=== PATIENT | male | born 1980 | race Caucasian/White ===

== ENCOUNTER 2016-08-25 19:26 | Emergency (ER) | payer OTHER ==
[~2016-08-25] VITALS: Ht 185.4 cm; Wt 119.7 kg
[2016-08-25 19:30] VITALS: TEMP 37.1
[2016-08-25] MEDS ORDERED: SODIUM CHLORIDE 0.9% 1000ML 1,000 ML IV STA (20:20)
[2016-08-25] MEDS ORDERED: LORAZEPAM 1 MG TAB SL STA (20:22)
[2016-08-25 20:24] VITALS: Ht 185.4 cm; Wt 119.7 kg
[2016-08-25] MEDS ORDERED: IBUP-1050 PO (20:59)
[2016-08-25 21:00] LABS: URINE APPEARANCE CLEAR (CLEAR); URINE BILIRUBIN NEG (NEG); URINE COLOR YELLOW; URINE NITRITE NEG (NEG); URINE PH 5.5 (4.5-7.5); URINE SPECIFIC GRAVITY 1.009 (1.000-1.030); UROBILINOGEN NEG (NEG)
[2016-08-25 21:03] LABS: MANUAL MICROSCOPIC REQUIRED? NO; REVIEW REQ? NO
[2016-08-25 21:31] LABS: BASO % 0.1 %; BASO ABS # 0.01 K/uL (0-0.2); COMPLETE YES; EOS % 1.7 %; IG% 0.3 %; LYMPH % 27.9 %; LYMPH ABS # 1.96 K/uL (1.2-3.4); MEAN CELL VOLUME 82.2 fL (80-100); MEAN CORPUSCULAR HEMOGLOBIN 29.8 pg (25-34); MEAN CORPUSCULAR HGB CONC 36.3 g/dl (32-36); MEAN PLATELET VOLUME 9.5 fL (7.4-10.4); MONO % 10.2 %; NEUT % 59.8 %; PLATELET COUNT 215 K/uL (130-400); RED BLOOD COUNT 5.23 M/uL (4.7-6.1); WHITE BLOOD COUNT 7.03 K/uL (4.8-10.8)
[2016-08-25 21:42] LABS: PROTHROMBIN TIME (PATIENT) 10.7 SECONDS (9.0-12.0)
--- NOTE | 2016-08-25 21:54 | DIAGNOSTIC IMAGING REPORT ---
CT HEAD WITHOUT CONTRAST (CT) CLINICAL HISTORY: Syncope. Possible seizure. HEAD TRAUMA COMPARISON STUDY: No previous studies for comparison. TECHNIQUE: Axial CT of the brain is performed from the vertex to the skull base. IV contrast was not administered for this examination. CT DOSE: FINDINGS: No intra or extra-axial mass lesions are visualized. There is no CT evidence of acute cortical infarction. There is no evidence of midline shift. There is no acute hemorrhage. No calvarial fractures are visualized. There is no evidence of pathologic ventricular dilatation. There is no evidence of acute sinusitis IMPRESSION: Normal noncontrast head CT. Electronically signed by: Matt Latif M.D. 08/25/2016 9:52 PM Dictated Date/Time: 08/25/2016 9:51 PM
--- NOTE | 2016-08-25 21:57 | DIAGNOSTIC IMAGING REPORT ---
CT OF THE CERVICAL SPINE CLINICAL HISTORY: Neck pain status post trauma COMPARISON STUDY: No previous studies for comparison. CT DOSE: 1008.55 mGy.cm TECHNIQUE: CT scan of the cervical spine was performed from the skull base to the thoracic inlet. Images are reviewed in the axial, sagittal, and coronal planes. IV contrast was not administered for this examination. FINDINGS: The visualized portions of the lung apices reveal no evidence of pneumothorax. There is a left maxilla sinus retention cyst. The prevertebral soft tissues are normal. No fractures or subluxations are visualized. There are degenerative changes most pronounced at the C5-6 level. IMPRESSION: No evidence of acute fracture or traumatic subluxation. Electronically signed by: Matt Latif M.D. 08/25/2016 9:54 PM Dictated Date/Time: 08/25/2016 9:52 PM
[2016-08-25 21:58] LABS: ALT/SGPT 41 U/L (12-78); BLOOD UREA NITROGEN 17 mg/dl (7-18); BUN/CREATININE RATIO 16.7 (10-20); CALCIUM 8.1 mg/dl (8.5-10.1); CARBON DIOXIDE 24 mmol/L (21-32); CHLORIDE 107 mmol/L (98-107); GLUCOSE 88 mg/dl (70-99); POTASSIUM 3.4 mmol/L (3.5-5.1); SODIUM 141 mmol/L (136-145)
[2016-08-25 22:07] LABS: ALKALINE PHOSPHATASE 51 U/L (45-117); AST/SGOT 20 U/L (15-37)
[2016-08-26 00:07] VITALS: BP 116/69; PULSE 73; O2SAT 97
--- NOTE | 2016-08-26 04:49 | EMERGENCY ROOM VISIT NOTE ---
History Report prepared by Cherry: Trang Dumont Under the Supervision of: Dr. Damion Malik M.D. First contact with patient: 20:08 Chief Complaint: SEIZURE Stated Complaint: SEIZURE, FELL AND HIT HEAD Nursing Triage Summary: pt states he had a seizure last night, no hx of seizures. states woke up felt nauseated went to bathroom was dizzy a little, sat on toilet, next thing he new he fell forwards and hit his head on floor, no hx of seizures History of Present Illness The patient is a 36 year old male who presents to the Emergency Room via to be evaluated for an episode of seizure that occurred one night ago. Last night, the patient woke up at 2330, feeling as if he needed to vomit. He had gone to sleep one hour before. He states that he never vomits, so he thought that this was unusual. On his way to the bathroom, the patient started to feel dizzy, but he did not find this too unusual as he states he has occasional dizzy spells. The patient walked over to the toilet and had nausea, tunnel- vision, dizziness and felt sweaty. He then fell to the ground. He states that he hit his forehead on the floor. He states that his head kept hitting the floor , but that he had no control over this. He could not move his arms or call for help. He believes that he hit his head about eight times on the ground. The patient then came to and stood back up. He realized that he had urinated on the floor. After the episode, the patient developed back and neck pain. He has a slight headache. The patient states that he ached throughout the day today and that the aching has increased in severity throughout the day. The patient states that he has a history of low blood sugar; his blood sugar has previously dropped to 42. Per , the patient has been having rapid alternating eye movements that he is not aware of. The patient last ate about 8 hours ago. Pt denies fevers, chills, diaphoresis, visual changes, chest pain, breathing difficulties, vomiting, abdominal pain, melena, hematochezia, urinary symptoms, numbness, weakness, lymphadenopathy, rash, or other complaints. Source of History: patient, family Onset: one night ago Position: other (global) Quality: other (syncope) Timing: other (episode) Associated Symptoms: + back pain, + headache, + nausea, + neck pain Note: He started to feel dizzy. He states that he hit his forehead on the floor. He states that his head kept hitting the floor, but that he had no control over this. He could not move his arms or call for help. He believes that he hit his head about eight times on the ground. He realized that he had urinated on the floor. Per , the patient has been having rapid alternating eye movements. Review of Systems See HPI for pertinent positives and negatives. A total of ten systems were reviewed and were otherwise negative. Past Medical & Surgical Medical Problems: (1) Hypoglycemia (2) Knee injury Family History Diabetes mellitus Hypertension Social History Smoking Status: Never Smoker Marital Status: Housing Status: lives with family Occupation Status: employed Current/Historical Medications Scheduled PRN Ibuprofen (Advil), 200-600 MG PO Q4H PRN for Pain Allergies Coded Allergies: No Known Allergies (Unverified , 08/25/16) Physical Exam Vital Signs Date Time Temp Pulse Resp B/P Pulse Ox O2 Delivery O2 Flow Rate FiO2 08/26/16 00:07 73 20 116/69 97 08/25/16 23:22 71 08/25/16 22:42 72 120/75 85 132/93 91 120/82 08/25/16 19:30 37.1 87 18 122/80 96 Room Air Physical Exam GENERAL: Awake, alert, well appearing, no distress HENT: Normocephalic, atraumatic. TM's normal. Oropharynx unremarkable. EYES: PERRL. EOMI. Normal conjunctiva. Sclera non-icteric. NECK: Supple. No nuchal rigidity. FROM. No JVD or bruit. RESPIRATORY: CTA CARDIAC: RRR. No murmur. ABDOMEN: Soft, non distended. No tenderness to palpation. No rebound or guarding. No masses. RECTAL: Deferred. MUSCULOSKELETAL: Unremarkable. No edema. No discoloration. Gross motor strength symmetric. NEURO: Cranial nerves 2-12 grossly intact. Normal sensorium. No sensory or motor deficits noted. Normal rapid alternating movements. Normal heel to goodson. Speech normal. No pronator drift. SKIN: No rash or jaundice noted. LYMPH: No adenopathy. Medical Decision & Procedures ER Provider Diagnostic Interpretation: Radiology results as stated below per my review and radiologist interpretation CT OF THE CERVICAL SPINE CLINICAL HISTORY: Neck pain status post trauma COMPARISON STUDY: No previous studies for comparison. CT DOSE: 1008.55 mGy.cm TECHNIQUE: CT scan of the cervical spine was performed from the skull base to the thoracic inlet. Images are reviewed in the axial, sagittal, and coronal planes. IV contrast was not administered for this examination. FINDINGS: The visualized portions of the lung apices reveal no evidence of pneumothorax. There is a left maxilla sinus retention cyst. The prevertebral soft tissues are normal. No fractures or subluxations are visualized. There are degenerative changes most pronounced at the C5-6 level. IMPRESSION: No evidence of acute fracture or traumatic subluxation. Electronically signed by: Matt Latif M.D. 08/25/2016 9:54 PM Dictated Date/Time: 08/25/2016 9:[address] HEAD WITHOUT CONTRAST (CT) CLINICAL HISTORY: Syncope. Possible seizure. HEAD TRAUMA COMPARISON STUDY: No previous studies for comparison. TECHNIQUE: Axial CT of the brain is performed from the vertex to the skull base. IV contrast was not administered for this examination. CT DOSE: FINDINGS: No intra or extra-axial mass lesions are visualized. There is no CT evidence of acute cortical infarction. There is no evidence of midline shift. There is no acute hemorrhage. No calvarial fractures are visualized. There is no evidence of pathologic ventricular dilatation. There is no evidence of acute sinusitis IMPRESSION: Normal noncontrast head CT. Electronically signed by: Matt Latif M.D. 08/25/2016 9:52 PM Dictated Date/Time: 08/25/2016 9:51 PM Laboratory Results 08/25/16 21:15 Red Blood Count 5.23, Mean Corpuscular Volume 82.2, Mean Corpuscular Hemoglobin 29.8, Mean Corpuscular Hemoglobin Concent 36.3, Mean Platelet Volume 9.5, Neutrophils (%) (Auto) 59.8, Lymphocytes (%) (Auto) 27.9, Monocytes (%) (Auto) 10.2, Eosinophils (%) (Auto) 1.7, Basophils (%) (Auto) 0.1, Neutrophils # (Auto ) 4.20, Lymphocytes # (Auto) 1.96, Monocytes # (Auto) 0.72, Eosinophils # (Auto ) 0.12, Basophils # (Auto) 0.01 08/25/16 21:15 Test 08/25/16 20:40 08/25/16 21:15 Urine Color YELLOW Urine Appearance CLEAR (CLEAR) Urine pH 5.5 (4.5-7.5) Urine Specific Elmo 1.009 (1.000-1.030) Urine Protein NEG (NEG) Urine Glucose (UA) NEG (NEG) Urine Ketones NEG (NEG) Urine Occult Blood NEG (NEG) Urine Nitrite NEG (NEG) Urine Bilirubin NEG (NEG) Urine Urobilinogen NEG (NEG) Urine Leukocyte Esterase NEG (NEG) White Blood Count 7.03 K/uL (4.8-10.8) Red Blood Count 5.23 M/uL (4.7-6.1) Hemoglobin 15.6 g/dL (14.0-18.0) Hematocrit 43.0 % (42-52) Mean Corpuscular Volume 82.2 fL (80-100) Mean Corpuscular Hemoglobin 29.8 pg (25-34) Mean Corpuscular Hemoglobin Concent 36.3 g/dl (32-36) Platelet Count 215 K/uL (130-400) Mean Platelet Volume 9.5 fL (7.4-10.4) Neutrophils (%) (Auto) 59.8 % Lymphocytes (%) (Auto) 27.9 % Monocytes (%) (Auto) 10.2 % Eosinophils (%) (Auto) 1.7 % Basophils (%) (Auto) 0.1 % Neutrophils # (Auto) 4.20 K/uL (1.4-6.5) Lymphocytes # (Auto) 1.96 K/uL (1.2-3.4) Monocytes # (Auto) 0.72 K/uL (0.11-0.59) Eosinophils # (Auto) 0.12 K/uL (0-0.5) Basophils # (Auto) 0.01 K/uL (0-0.2) RDW Standard Deviation 36.8 fL (36.4-46.3) RDW Coefficient of Variation 12.3 % (11.5-14.5) Immature Granulocyte % (Auto) 0.3 % Immature Granulocyte # (Auto) 0.02 K/uL (0.00-0.02) Prothrombin Time 10.7 SECONDS (9.0-12.0) Prothromb Time International Ratio 1.0 (0.9-1.1) Activated Partial Thromboplast Time 25.5 SECONDS (21.0-31.0) Partial Thromboplastin Ratio 1.0 Anion Gap 10.0 mmol/L (3-11) Est Creatinine Clear Calc Drug Dose 141.1 ml/min Estimated GFR () 113.3 Estimated GFR (Non- 97.8 BUN/Creatinine Ratio 16.7 (10-20) Calcium Level 8.1 mg/dl (8.5-10.1) Magnesium Level 2.0 mg/dl (1.8-2.4) Total Bilirubin 0.6 mg/dl (0.2-1) Direct Bilirubin 0.1 mg/dl (0-0.2) Aspartate Amino Transf (AST/SGOT) 20 U/L (15-37) Alanine Aminotransferase (ALT/SGPT) 41 U/L (12-78) Alkaline Phosphatase 51 U/L (45-117) Total Creatine Kinase 175 U/L (39-308) Troponin I < 0.015 ng/ml (0-0.045) Total Protein 6.8 gm/dl (6.4-8.2) Albumin 3.6 gm/dl (3.4-5.0) Lipase 168 U/L (73-393) Thyroid Stimulating Hormone (TSH) 2.960 uIu/ml (0.300-4.500) Laboratory results reviewed by me Medications Administered Medications (Trade) Dose Ordered Sig/Namrata Route Start Time Stop Time Status Last Admin Dose Admin Sodium Chloride (Nss 1000ml) 1,000 ml @ 999 mls/hr Q1H1M STAT IV 08/25/16 20:20 08/25/16 21:20 DC 08/25/16 20:20 999 MLS/HR Lorazepam (Ativan Tab) 1 mg NOW STAT SL 08/25/16 20:22 08/25/16 20:25 DC 08/25/16 20:36 1 MG ECG Indication: syncope Rate (beats per minute): 71 Rhythm: sinus rhythm (with sinus arrhythmia) Findings: RBBB (incomplete), no acute ischemic change, no ectopy ED Course 2011: The patient was evaluated in room B5. A complete history and physical exam was performed. 2020: Sodium Chloride 1000 ml @ 999 mls/hr IV 2021: Ativan tab 1 mg SL 2350: I reevaluated the patient. Discussed results and discharge instructions: He verbalized understanding and agreement. The patient is ready for discharge. Medical Decision Triage Nursing notes reviewed. The patient's presentation and history were concerning for possible consciousness with some possible seizure-like activity. Etiologies such as vasovagal event, seizure, infection, hypoglycemia, electrolyte abnormalities, cardiac sources, intracerebral event, toxicologic, neurologic, as well as others were entertained. The patient was evaluated. He was nonfocal examination. He had a small contusion on the forehead. His history seems to most consistent with a vasovagal-like event. He had nausea and abdominal cramping prior to his event. He states he got up and felt slightly lightheaded and then lost control and may have had some shaking episodes with this. He did not bite his tongue. There is no obvious extended post ictal period that was observed. The patient had an unremarkable CBC and chemistry panel. Urinalysis was negative. His LFTs and lipase were negative. Magnesium was normal. Troponin was negative. ECG was unremarkable. CT imaging of the head and neck were negative. The patient was started on reassessment. I discussed close outpatient follow-up with neurology and his primary clinic. The patient was in agreement. The patient was counseled not to drive until follow-up with neurology. He was in agreement. By the evaluation outlined above other emergent etiologies such as those listed in the differential, as well as others, were deemed relatively unlikely. The patient and family were informed about the findings as listed above. All questions were answered and they were pleased with the treatment. Return instructions were outlined and the patient was discharged in stable condition. The patient was referred to [facility] neurology and family practice for follow- up Sunday for a recheck of the current condition. The chart was completed utilizing [employer] Speech voice recognition software. Grammatical errors, random word insertions, pronoun errors, and incomplete sentences are an occasional consequence of this system due to software limitations, ambient noise, and hardware issues. Any formal questions or concerns about the content, text, or information contained within the body of this dictation should be directly addressed to the physician for clarification. Impression Primary Impression: Syncope Additional Impression: Seizure-like activity Scribe Attestation The scribe's documentation has been prepared under my direction and personally reviewed by me in its entirety. I confirm that the note above accurately reflects all work, treatment, procedures, and medical decision making performed by me. Departure Information Dispostion Home / Self-Care Referrals No Doctor, Assigned (PCP) Forms HOME CARE DOCUMENTATION FORM, IMPORTANT VISIT INFORMATION Patient Instructions My [facility] Additional Instructions Ibuprofen(Motrin, Advil) may be used for fever or pain. Use 600mg every six hours as needed. Take with food. Avoid using more than 2400mg in a 24 hour period. Do not use 2400mg per day for more than three consecutive days without physician direction. Prolonged inappropriate use can lead to stomach upset or ulcers. (AND/OR) Acetaminophen(Tylenol) may be used for fever or pain. Use 1000mg every six hours as needed. Avoid using more than 4000mg in a 24 hour period. Rest and drink plenty of fluids as tolerated. Continue current medications. Return to the ER for passing out, chest pain, headache, persistent vomiting, fevers, abdominal pain, chest pains, difficulty breathing, black or bloody stools, worsening of your condition, or as needed. Do not drive until cleared by your follow-up appointment. Follow up with Dr. Cortés and your primary physician on Sunday for a recheck of your current condition. Problem Qualifiers
== END 2016-08-26 00:09 | disposition home or self-care (01) ==
LOC: C.EDB 19:27
DX: R55 Syncope and collapse (principal); G40.909 Epilepsy, unspecified, not intractable, without status epilepticus; I45.10 Unspecified right bundle-branch block; Z87.828 Personal history of other (healed) physical injury and trauma; Z83.3 Family history of diabetes mellitus; Z82.49 Family history of ischemic heart disease and other diseases of the circulatory system

== ENCOUNTER → 2017-02-19 | Outpatient (CLI) | payer OTHER ==
[~2017-02-19] MED LIST: IBUP-1050 PO
--- NOTE | 2017-02-20 09:16 | PAP/PSG TECHNICIAN REPORT ---
[facility] Research Laboratory Manager Polysomnogram Report Study name: None Report date: 02/20/2017 Study date: 02/19/2017 Referring Physician: Eric Adam M.D. Name: MICHAEL KIANA SEALS Interpreting Physician: Bryson Adam M.D. Date of : 1980 Research Laboratory Manager: Soo Hammer [facility]. Sex: Male Age: 36 StudyType: PSG Weight: 257 lbs Height: 36 years, Height 6' 1.75" Neck Circum: 16.25 inches BMI: 33.22 Medications: Advair, Ibuprofen Patient History 36 yr. old male here for a possible split night sleep study in room 7. Patient complains of not feeling rested, loud snoring, and restlessness. Patients Wedron Sleepiness Scale Score is 11/24. Parameters Monitored NPSG: E1-M2, E2-M1, Fp1-M2, Fp2-M1, F3-M2, F4-M2, F4-M1, C3-M2, C4-M2, C4-M1, O1-M2, O2-M2, O2-M1, T3-M2, T4-M1, P3-M2, P4-M1, CHIN1, CHIN2, HR, EKG, Legs, PFLOW, SNOR, FLOW, CFLOW, Tidal Volume, THOR, ABDO, SpO2, PLTH, CPRESS, ETCO2 Wave, ETCO2, pH Sleep Architecture Sleep Stages Time at Lights Off 9:38:29 PM STAGES Time (min.) TST (%) Time at Lights On 5:40:59 AM Wake 57.5 -- Total Recording Time (TRT) 482.50 min. N1 34.0 8 Total Sleep Period (TSP) 440.5 min. N2 211.5 50 Total Sleep Time (TST) 425.0min. N3 62.0 15 Awake Time 57.5 min. REM 117.5 28 Wake after Sleep Onset 15.5 min. Sleep Efficiency (SE) 88 % Sleep Onset Latency (JOAQUÍN) 42.0 min. Number of Stage 1 Shifts None Awakenings 21 Stage Changes 102 Number of REM periods 15 REM 117.5 28 REM Latency 53.0 min. NREM 307.5 72 Body Position Analysis Supine Right Left Side Prone Vertical Total Sleep Time (min.) 268.2 0.0 204.8 204.77 0.0 0.0 Total Sleep Time (%) 52% 0% 48% 48 0% N/A% Total Sleep Time REM (min.) 43.5 0.0 74.0 None 0.0 0.0 Total Sleep Time NREM (min.) 176.7 0.0 130.8 None 0.0 0.0 Intermittent Wake (min.) 48.0 0.0 9.4 None 0.0 0.0 Total Sleep Period (%) 52% None None None None None Arousals Myoclonus (PLM) * Events Count Index Events Count Index Spontaneous 13 2 Events Awake (PLMW) 61 63.7 Respiratory 4 0.6 Events Asleep w/ Arousal (PLMA) 18 2.5 PLM 18 3 Events Asleep w/o Arousal (PLMS) 61 8.6 Snoring 7 1 Total Asleep 79 11.2 Total 42 6 Total 140 17 Respiratory Analysis * CA OA MA CH H RERA Total Count 0 0 0 0 44 0 44 Index 0.0 0.0 0.0 0 6.2 0 6.2 Mean Duration 0.0 0.0 0.0 0.00 22.6 0.0 22.6 Longest Duration 0.0 0.0 0.0 0.00 0.0 0.0 52.1 Respiratory Event Summary Total Supine ~Supine Right Left Prone REM NREM Apneas Count 0 0 0 N/A 0 N/A 0 0 Index 0.0 0 0 N/A 0.0 N/A 0 0 Hypopneas (4% Desat) Count 44 27 17 N/A 17 N/A 29 15 Index 6.2 7.4 5 N/A 5.0 N/A 14.8 2.9 Apneas & All Hypopneas Count 44 27 17 N/A 17 N/A 29 15 Index 6.2 7 5 N/A 5 N/A 14.8 2.9 Respiratory Events (Coal Tram Driver+All Hyp+RERA) Count 44 27 17 N/A 17 N/A 29 15 Index 6.2 7 5 N/A 5.0 N/A 14.8 2.9 Respiratory Related Arousal Count 4 27 0 N/A 0 N/A 1 3 Index 0.6 1 0 N/A 0 N/A 1 1 Snoring Analysis Supine Right Left Prone REM NREM Total Snore duration 3.4 min Snores count 36 N/A 109 N/A 32 113 145 Snore mean duration 1.4 Sec Snores index 10 N/A 32 N/A 16.3 22.0 20.5 TST with snoring (%) 0.8% Desaturation Event Summary: Minimum %SpO2 Event Count Mean/Min/Max Duration(sec.) Desaturation Index % Time In Bed > 90 63 31.2 / 4.5 / 60.0 8.2 95.3 86 - 90 4 28.1 / 13.0 / 59.3 11.1 4.5 81 - 85 0 N/A 0.0 0.2 76 - 80 0 N/A 0.0 0.0 71 - 75 0 N/A 0.0 0.0 66 - 70 0 N/A 0.0 0.0 61 - 65 0 N/A 0.0 0.0 56 - 60 0 N/A 0.0 0.0 51 - 55 0 N/A 0.0 0.0 < 50 0 N/A 0.0 0.0 Total REM NREM Awake <50% 0.0 min. 0.0 min. 0.0 min. 0.0 min. 51 - 60% 0.0 min. 0.0 min. 0.0 min. 0.0 min. 61 - 70% 0.0 min. 0.0 min. 0.0 min. 0.0 min. 71 - 80% 0.2 min. 0.2 min. 0.0 min. 0.0 min. 81 - 90% 22.5 min. 11.0 min. 9.5 min. 2.0 min. 91 - 100% 458.5 min. 106.3 min. 297.0 min. 55.2 min. Average 94 94 94 94 Minimum SpO2 76 76 81 89 Desaturation Event Index 8.1 14.3 5.5 12.5 # Desat. Events below 89% 14 10 4 N/A Time(%) with Saturation below 89% 1.0 0.8 0.2 0.0 Time(min.) with Saturation below 89% 4.7 3.8 0.9 0.0 Time (mins) REM (mins) NREM (mins) % of TST SpO2 Below 90% 27 15 N12 2.2 SpO2 Below 88% 5 0 0 1 Heart Rate Analysis Min (bpm) Max (bpm) Average (bpm) Awake 49 95 80 NREM 46 93 64 REM 44 83 62 Overall 44 93 64 Supplemental O2 Values Minimum O2 level: None Value Start Time End Time Research Laboratory Manager Comments slept in the supine and left positions. No cardiac arrhythmia. PLMs noted. No bruxism noted. Snoring was noted and scored as a 2 on a scale of 0 through 5. (0=no snoring, 5=snoring loud enough to be heard through a closed door or down the us way) did not wake to use the restroom during the night. stated, I woke up a lot. The final report will be interpreted and signed by a sleep physician. The completed physician report will then be placed in the patient medical record. Therapy (cm H2O) 0 TIB (min.) 482.5 TST (min.) 425.0 Sleep Onset (min.) 42.0 REM Onset From Sleep (min.) 53.0 Sleep Efficiency % 88 Wakefulness (%) 12 Wakefulness (min.) 57.5 NREM 1 (%) 8 NREM 1 (min.) 34.0 NREM 2 (%) 50 NREM 2 (min.) 211.5 NREM 3 (%) 15 NREM 3 (min.) 62.0 REM (%) 28 REM (min.) 117.5 # Arousals 42 Arousal Index 6 # Snore 145 Snore Index 20.5 AHI 6.2 AHI Supine 7 AHI Non-Supine 5 NREM AHI 2.9 REM AHI 14.8 RDI 6.2 # Obstructive Apnea 0 # Central Apnea 0 # Mixed Apnea 0 # Hypopneas 44 RERAs 0 Total Respiratory Events 47 Time Below SpO2 89% (min.) 4.7 Mean NREM SpO2 (%) 94 Mean REM SpO2 (%) 94 Mean Sleep SpO2 (%) 94 Min NREM SpO2 (%) 81 Min REM SpO2 (%) 76 Position Supine (min.) 268.2 Position Non-supine (min.) 204.8 LM Index Sleep 11.2 LM Index NREM 10.5 LM Index REM 12.8 Mean Heart Rate (bpm) 64 Min Heart Rate (bpm) 44
--- NOTE | 2017-03-13 09:27 | POLYSOMNOGRAPH REPORT ---
REFERRING PERSON: Dr. Sánchez Adam. CERTIFIER: Soo Hammer. Mr. Haynes is a 36-year-old male sent for a possible split night sleep study. He complains of unrefreshing sleep, loud snoring and restlessness. His [place] sleepiness scale score on the evening of this study is 11. BMI is 33.22. Following the technical and digital specifications of the [employer] ([employer]) a standard diagnostic polysomnogram was performed monitoring EEG, EOG, EMG (chin and leg deviations), oxygen saturation, body position, digital video, respiratory effort and airflow. The sleep Stage and event scoring was based on the [employer]ASM Manual for the Scoring of Sleep and Associated Events 2007 edition. Apneas are defined as a drop in the peak thermal sensor excursion by >90% of baseline for at least 10 seconds. Hypopneas were scored using the 4% oxygen desaturation rule ([employer]A-[employer]) and a decrease in the nasal pressure excursions by >30% of baseline for at least 10 seconds. Respiratory effort-related arousal (RERA's) is defined as a sequence of breaths lasting at least 10 seconds characterized by increasing respiratory effort or flattening of the nasal pressure waveform leading to an arousal from sleep when the sequence of breaths does not meet criteria for an apnea or hypopnea. Apnea Hypopnea index (AHI) is defined as the number of apneas and hypopneas occurring in an hour of sleep. Respiratory disturbance index (RDI) is defined as the number of apneas, hypopneas, and RERA's occurring in an hour of sleep. Mr. Haynes's total sleep period time was 440.5 minutes. Total sleep time was 425 minutes. Sleep efficiency was 88%. Latency to sleep onset was 42 minutes with wake after sleep onset was 15.5 minutes. Total non-REM sleep time was 307.5 minutes. He spent 8% of that time in N1 sleep, 50% in N2 sleep and 15% in N3 sleep. REM latency was 53 minutes. Total REM sleep time was 117.5 minutes or 28% of total sleep time. There were 42 cortical arousals from sleep. 13 of these arousals were spontaneous, 4 were due to respiratory events, 18 due to periodic limb movements of sleep and 7 were due to snoring. There were 79 periodic limb movements noted on this test. Limb movement index was 11.2. Limb movement with arousal index was 2.5. There were no central obstructive or mixed apneas on this test. There were 44 hypopneas and no RERA. Apnea-hypopnea index was 6.2. Supine AHI was 7 and REM AHI was 14.8. There were 145 snoring events recorded. Total sleep time with snoring was 0.8%. Mean saturation was 94% with desaturations to 76%; however, saturations were less than 89% for only 4.7 minutes of recorded time. There was no cardiac ectopy noted on this study. Heart rates during sleep ranged from a low of 44 beats per minute to a high of 93 beats per minute. IMPRESSION AND PLAN: Mr. Haynes is a 36-year-old male with evidence of mild sleep apnea worse during REM sleep on this sleep study. 1. This patient would likely benefit from positive airway pressure therapy. He could return to the sleep lab for a full night titration and then based on those results, will be started on equipment at home. A download from his machine can be reviewed in 1 month both to check compliance as well as AHI and further pressure adjustments can occur at that time. 2. Alternatively, this patient could be started on auto titrating CPAP with pressures of 5-15 cm. A download from his device can determine optimal pressure after 1 month and he can be set of that pressure at that time. 3. Should this patient be unwilling or unable to tolerate CPAP therapy, he could be referred to ear, nose and throat or oral surgery/dental medicine (if appropriate) to discuss alternative treatments for sleep disorder breathing.
== END | disposition home or self-care (01) ==
LOC: C.NEUR 21:00
PROVIDERS: ATTEND Family Medicine
DX: G47.10 Hypersomnia, unspecified (principal); R06.83 Snoring; E66.9 Obesity, unspecified